=== PATIENT | male | born 1965 | race Caucasian/White ===

== ENCOUNTER 2022-12-18 11:51 | Emergency (ER) | payer OTHER, BC, SELFPAY ==
--- NOTE | ~2022-12-18 | XR_ITS ---
EXAMINATION: XR shoulder LT min 2V DATE: 12/18/2022 13:01 INDICATION: Left shoulder pain. Fall. TECHNIQUE: 3 views of left shoulder were obtained. COMPARISON: None. FINDINGS: Bone alignment is normal. No fracture. The glenohumeral joint is normal. There is mild acro mioclavicular joint osteoarthritis. IMPRESSION: 1. Mild left glenohumeral joint osteoarthritis. Reviewed, dictated and finalized at location A.
--- NOTE | ~2022-12-18 | XR_ITS ---
EXAMINATION: XR elbow LT min 3V DATE: 12/18/2022 13:01 INDICATION: Left elbow pain. Fall. TECHNIQUE: 4 views of left elbow were obtained. COMPARISON: None. FINDINGS: Bone alignment is normal. No fracture. Joint spaces are normal. No elbow joint effusion. IMPRESSION: 1. Normal left elbow. Reviewed, dictated and finalized at location A. IMPRESSION: 1. Normal left elbow.
--- NOTE | ~2022-12-18 | XR_ITS ---
EXAMINATION: XR hip LT min 2V DATE: 12/18/2022 13:01 INDICATION: Left hip pain. Fall. TECHNIQUE: 3 views of left hip were obtained. COMPARISON: None. FINDINGS: Bone alignment is normal. No fracture. There is mild left hip osteoarthritis. IMPRESSION: 1. Mild left hip osteoarthritis. Reviewed, dictated and finalized at location A.
[2022-12-18 12:03] VITALS: BP 136/86; PULSE 65; RESP 16; TEMP 36.6; O2SAT 98
--- NOTE | 2022-12-18 12:19 | ED.FALL ---
HPI - Fall General Chief Complaint: Fall Stated Complaint: FALL/L SHOULDER/ELBOW/HIP PAIN Time Seen by Provider: 12/18/22 12:08 Source: patient and RN notes reviewed Mode of arrival: ambulatory Limitations: no limitations History of Present Illness HPI Narrative: Patient presents today complaining of pain after a slip and fall yesterday on a wet floor. He is complaining of pain in the left shoulder, elbow, and hip. Denies numbness or tingling in the extremities. Denies radiation of pain. Denies head injury or loss of consciousness. He currently rates his pain at rest 1/10, which increases with touching of any of the areas. He has been taking ibuprofen with mild relief. Related Data Home Medications Medication Instructions Recorded Confirmed dapagliflozin propanediol 10 mg 10 mg PO DAILY 12/18/22 12/18/22 tablet (Farxiga) fluticasone fur. 100 mcg-umeclid 100 inh inhalation DAILY 12/18/22 12/18/22 62.5 mcg-vilant 25 mcg inhalat.powder (Trelegy Ellipta) metoprolol succinate 25 mg 25 mg PO DAILY 12/18/22 12/18/22 tablet,extended release 24 hr sacubitril 24 mg-valsartan 26 mg 1 tablet PO BID 12/18/22 12/18/22 tablet (Entresto) tadalafil 20 mg tablet 20 mg PO PRN PRN Sexual Activity 12/18/22 12/18/22 Allergies Allergy/AdvReac Type Severity Reaction Status Date / Time No Known Allergies Allergy Unverified 12/18/22 12:01 Review of Systems Review of Systems: CONSTITUTIONAL: Denies body aches, fever, chills, or sweats. EYES: Denies visual changes, redness, or discharge. ENT: Denies rhinorrhea, congestion, sore throat, or otalgia. CARDIOVASCULAR: Denies chest pain, palpitations, or edema. RESPIRATORY: Denies cough or dyspnea. GASTROINTESTINAL: Denies abdominal pain, nausea, vomiting, or diarrhea. GENITOURINARY: Denies dysuria or hematuria. SKIN: Denies rash, itching, or wounds. MUSCULOSKELETAL: Denies back pain. + left hip pain, shoulder pain, elbow pain NEUROLOGIC: Denies headache, numbness, tingling, or weakness. PSYCH: Denies depression or anxiety. [facility] Past Medical History Medical History (Updated 12/18/22 @ 13:14 by Summer Tinsley, [facility], ) Diabetes Hypertension Comments At time of signature, I have reviewed and agree with nursing past medical, surgical, social and family history unless otherwise noted. Please see nursing chart for further information. There is no relevant family history pertinent to the presenting complaint Exam Narrative: GENERAL: Well-appearing, well-nourished, and in no acute distress. HEAD: Normocephalic, atraumatic. EYES: EOMI. No redness or drainage. Conjunctivae normal. ENT: Mucous membranes pink and moist. NECK: Normal AROM. CHEST: No respiratory distress. EXTREMITIES: Left shoulder: Point tenderness to the lateral shoulder. No edema or crepitus noted. Pain with more than 90 degree anterior reach and abduction. Normal interior and exterior rotation. Left elbow: Point tenderness to the olecranon process with scant localized edema. No erythema or ecchymosis noted. Distal sensation intact. Capillary refill normal. Radial pulse normal. No pain with pronation or supination of the wrist. Left hip: Patient has small area of point tenderness to the lateral hip only. No pain with palpation of the anterior or posterior hip. Full range of motion without pain. Distal sensation intact. Capillary refill normal. SKIN: Warm, dry, no rash. Capillary refill normal. Normal skin turgor. NEURO: No focal deficits. Alert and oriented x3. Gait steady. PSYCH: Normal affect. No signs of depression or anxiety. Course Course Level of Care: Express Care Visit Vital Signs Vital signs: Vital Signs Temperature 98 F 12/18/22 12:03 Pulse Rate 65 12/18/22 12:03 Respiratory Rate 16 12/18/22 12:03 Blood Pressure 136/86 12/18/22 12:03 Pulse Oximetry 98 12/18/22 12:03 Temperature 98 F 12/18/22 12:03 Pulse Rate 65 12/18/22 12:03 R
== END 2022-12-18 13:20 | disposition home or self-care (01) ==
PROVIDERS: Emergency Provider Nurse Practitioner
DX: S40.012A Contusion of left shoulder, initial encounter (principal); S50.02XA Contusion of left elbow, initial encounter; S70.02XA Contusion of left hip, initial encounter; W01.0XXA Fall on same level from slipping, tripping and stumbling without subsequent striking against object, initial encounter; E11.9 Type 2 diabetes mellitus without complications; I10 Essential (primary) hypertension
CPT/HCPCS: 73030; 73080; 73502; 99214; G0463